=== PATIENT | male | born 1955 | race Caucasian/White ===

== ENCOUNTER 2018-06-18 13:51 | Inpatient (IN) ==
[~2018-06-18 13:51] MED LIST: ceFAZolin 1,000 MG, Sodium Chloride IRRigation 1,000 ML IR ONE
[2018-06-18] MEDS ORDERED: Famotidine 20 MG/2 ML VIAL IVP ONE (14:22)
[2018-06-18] MEDS ORDERED: Gabapentin 300 MG CAPSULE PO ONE (14:22)
[2018-06-18] MEDS ORDERED: Acetaminophen IV 1,000 MG/100 ML INFUS..BTL IVPB ONE (14:23)
[2018-06-18] MEDS ORDERED: traMADol 50 MG TABLET PO ONE (14:23)
[2018-06-18] MEDS ORDERED: Albuterol 2.5 MG/3 ML NEBULIZER IH ONE (14:25)
[2018-06-18] MEDS ORDERED: CeFAZolin Syr 2,000MG/20 ML 2,000 MG/20 ML SYRINGE IVPB ONE (14:25)
[2018-06-18] MEDS ORDERED: Ringers Solution, Lactated 1,000 ML IVC SCH (14:30)
--- NOTE | 2018-06-18 15:13 | Anesthesia Evaluation PreOp ---
Date of Encounter: 06/18/18 Time of Encounter: 15:12 - Past History Planned Operation: L-CEA Cardiac History: MO (2002), HTN, Hyperlipidemia, Cardiac Surgery (CABG x 3v at same time as Stent [2002]), Cardiac Stent ( stent x 1 2002), Other (PVDz s/p BLE bypasses w/ stents [[id number]]) Pulmonary History: Smoker (1ppd x 45yrs), COPD (denies) OPERATIONS SUPPORT SPECIALIST History: TIA (TIA x 3 [[id number]] discovered on imaging...off Eliquis x 7 days), Other (Anxiety/Depression) Other Medical History: GERD, Other (Hx Colon resection secondary to ischemic bowel/embolus 2015) Anesthesia History: No Prior Anesthetic Complications, Past Anesthesia (CABG x 3v [2002], Colon resection 2015, FAcial surgery s/p 86 foot fall off bldg 1985, Knee scope, Lumbar surgery/herniated disc), Problems ("I get Mean after Anesthesia") Alcohol Use: none Drug use: none Medications and Allergies Albuterol Sulfate [Albuterol Inhaler] 2 puff IH Q6H PRN 06/14/18 [History] Aspirin [Lo-Dose Aspirin EC] 81 mg PO QAM 06/14/18 [History] Atorvastatin Calcium [Lipitor] 80 mg PO HS 06/14/18 [History] Carvedilol [Coreg] 12.5 mg PO BIDWM 06/14/18 [History] Cholecalciferol (Vitamin D3) [Vitamin D3] 1,000 unit PO BID 06/14/18 [History] FLUoxetine HCl [Prozac] 10 mg PO QAM 06/14/18 [History] Lisinopril [Zestril] 10 mg PO DAILY 06/14/18 [History] Omeprazole [PriLOSEC] 20 mg PO QAM 06/14/18 [History] Trazodone HCl 50 mg PO HS 06/14/18 [History] Apixaban [Eliquis] 5 mg PO BID 06/18/18 [History] Allergy/AdvReac Type Severity Reaction Status Date / Time No Known Allergies Allergy Unverified 06/18/18 14:53 - Meds/Allergy Pre-op Review Medications Reviewed: Yes Allergies Reviewed: Yes Beta Blockers on Current Med List: No Anesthesia Results - Labs Laboratory Tests 06/12/18 06/12/18 11:13 11:13 WBC 7.4 Hgb 14.5 Hct 43.5 Plt Count 190 Sodium 139 Potassium 4.5 Chloride 107 Carbon Dioxide 27 BUN 11 Creatinine 1.15 Est GFR (Non-Af Amer) > 60 Glucose 99 - Imaging EKG: image reviewed (56bpm - SINUS BRADYCARDIA MODERATE INTRAVENTRICULAR CONDUCTION DELAY ST DEVIATION AND MODERATE T-WAVE ABNORMALITY, CONSIDER ANTEROLATERAL ISCHEMIA Electronically Signed On 06-12-2018 15:31:32 EDT by Chapin Pillai) Additional studies: ECHO 02/2018 EV/EV echocardiogram Impressions: LVEF 35-40%. Moderate global and segmental left ventricular systolic dysfunction. Mildly dilated left ventricle. Mild left ventricular diastolic dysfunction. Normal right ventricular structure and function. Mild-moderate mitral regurgitation. Unable to estimate RVSP due to lack of TR jet. Left Ventricular Wall Motion: Rest Echo Findings The apical inferior, mid inferior, basal inferior, mid anterior, basal anterior, basal inferior septal, apical lateral, mid anterior lateral, basal anterior lateral, mid inferior lateral, basal anterior septal and basal inferior lateral plasencia were hypokinetic. The apex, apical anterior, apical septal, mid inferior septal and mid anterior septal plasencia were akinetic. Anesthesia Exam O2 Sat Height 1.7 m Height 1.7 m Weight 72.121 kg Weight 72.121 kg O2 Sat by Pulse Oximetry 99 O2 Sat by Pulse Oximetry 99 Vital Signs Temp Pulse Resp BP Pulse Ox 97.6 F 67 18 135/86 99 06/18/18 14:29 06/18/18 14:29 06/18/18 14:29 06/18/18 14:29 06/18/18 14:29 Height: 5'7" Weight: 159# BMI = 25 NPO (# of Hours): MNoc - HEENT Pupil (Motor): Pupils equal, EOMI Mallampati: II Teeth: Edentulous Oral Opening: Greater than 3 - OPERATIONS SUPPORT SPECIALIST LOC: Oriented OPERATIONS SUPPORT SPECIALIST Motor: Normal RUE, Normal LUE, Normal RLE, Normal LLE, Normal Face OPERATIONS SUPPORT SPECIALIST Sensory: Normal: RUE, LUE, RLE, LLE, Face - Cardiac Rhythm: Regular Murmur: None - Pulmonary Breath Sounds: bilateral Clear Respiratory Effort: Symmetrical Anesthesia Assess/Plan ASA Score: 3 (HTN, GERD, Anxiety/Depression, COPD, Chol,) Level of consciousness: Cooperative, Oriented, Tranquil Anesthetic Plan: General Monitoring Plan: Standard Monitors, A-Line Recovery Plan: PACU Anes Supervising Prov Stmt: PT seen/evaluated, R&B discussed, questions answered and consent obtained - Hernán.
--- NOTE | 2018-06-18 15:26 | History & Physical Report ---
Date of Encounter: 06/18/18 Time of Encounter: 15:25 24 Hour HP Update - Instructions Instructions: If the History and Physical is less than 30 days old and was completed prior to A.M. admission and or procedure and has NOT been updated on calendar day of procedure please complete this update prior to performing procedure. - Update Patient reports changes in Medical Condition: No Changes in examination, assessment, or condition: No Changes in Medication: No Preop tests/diagnostics Reviewed: Yes Surgery Remains Indicated: Yes Consent for Planned Operative Procedure(s) Verified: Yes - Pre-Operative Checklist Preoperative Checklist Indicated: Yes Prophylactic Antibiotic Ordered: Yes Home Medications Include Beta Areli: Yes Beta Areli Taken Today (Day of Surgery): Yes Beta Areli Taken Yesterday (Day Prior to Surgery): Yes Is VTE Prophylaxis Indicated?: Yes
[2018-06-18] MEDS ORDERED: Heparin 1,000 UNITS/500 mL 500 ML ONE (15:33)
[2018-06-18] MEDS ORDERED: Dexamethasone 4 MG/ML VIAL ONE (16:17)
[2018-06-18] MEDS ORDERED: Ondansetron 4 MG/2 ML VIAL ONE (16:17)
[2018-06-18] MEDS ORDERED: *HR* FentaNYL (PF) 100 MCG/2 ML VIAL ONE ×2 (16:17→20:01)
[2018-06-18] MEDS ORDERED: Lidocaine -MPF 2% 2 ML VIAL ONE (16:17)
[2018-06-18] MEDS ORDERED: *HR* Succinylcholine 200 MG/10 ML VIAL IVP ONE (16:17)
[2018-06-18] MEDS ORDERED: *HR* Remifentanil 2 MG VIAL IVP ONE (16:17)
[2018-06-18] MEDS ORDERED: Lidocaine -MPF 4% 5 ML AMPUL ONE (16:17)
[2018-06-18] MEDS ORDERED: *HR* PHENYLEPHRINE 1,000 MCG/10 ML SYRINGE IVP ONE (16:17)
[2018-06-18] MEDS ORDERED: *HR* Midazolam HCl 2 MG/2 ML VIAL ONE (16:17)
[2018-06-18] MEDS ORDERED: *HR* Propofol 200 MG/20 ML VIAL IVP ONE (16:17)
[2018-06-18] MEDS ORDERED: *HR* Rocuronium Bromide 50 MG/5 ML VIAL ONE (16:17)
[2018-06-18] MEDS ORDERED: Heparin 1,000 UNITS/500 mL 1,000 ML ONE (16:25)
[2018-06-18] MEDS ORDERED: Bupivacaine-MPF 0.25% 10 ML VIAL ONE (16:25)
[2018-06-18] MEDS ORDERED: Lidocaine 1% 20 ML MDV ONE (16:25)
[2018-06-18] MEDS ORDERED: *HR* Vasopressin 20 UNIT/ML VIAL ONE (17:24)
[2018-06-18] MEDS ORDERED: *HR* Phenylephrine 10 MG/ML VIAL ONE (18:04)
[2018-06-18] MEDS ORDERED: *HR* Heparin 5,000 UNIT/ML VIAL ONE ×2 (18:10→19:13)
--- NOTE | 2018-06-18 20:06 | Operative Note ---
Date of procedure: 06/18/18 Pre-op diagnosis: left carotid stenosis and CVA Post-op diagnosis: same Procedure: left carotid endarterectomy with 8 Fr shunt and patch angioplasty Complications: 0 Anesthesia: GETA Surgeon: Gregory Cox Was there an retail administrative assistant present: No Estimated blood loss (cc): 150 Specimen: 0 Condition: stable Disposition: PACU Procedure in Detail: History Geoffrey Worthy is a 62-year-old white male who was seen in the clinic for a bnormal duplex scan and history of bilateral hemispheric strokes. The patient is being evaluated for future left knee surgery and he comes to the vascular surgery clinic for clearance. Because of the severity of his disease and angina and was recommended. This was performed last Sunday and revealed a high-grade stenosis of the left internal carotid artery and bulbar area. The patient THE OPERATING ROOM FOR CORRECTION OF THIS LESION. PROCEDURE AFTER INFORMED CONSENT WAS OBTAINED THE PATIENT WAS TAKEN TO THE OPERATING ROOM. GENERAL ENDOTRACHEAL ANESTHESIA WAS ESTABLISHED. AN ARTERIAL LINE WAS PLACED. THE LEFT NECK WAS THEN STERILELY PREPPED AND DRAPED. AFTER A TIMEOUT PROTOCOL WAS OBSERVED AND INCISION WAS MADE ON THE LEFT NECK PARALLEL TO THE ANTERIOR BORDER OF THE STERNOCLEIDOMASTOID MUSCLE. DISSECTION WAS CARRIED DOWN TO THE CAROTID SHEATH WHICH WAS THEN OPENED. THE PATIENT HAD SIGNIFICANT SCARRING ALONG THE CONTENTS OF THE CAROTID SHEATH SUGGESTING PREVIOUS INSTRUMENTATION IN THIS AREA. AFTER THE DISSECTION WAS COMPLETE AND SELECTIVE CONTROL WAS OBTAINED OF THE CAROTID VESSELS 5000 UNITS OF HEPARIN WERE ADMINISTERED INTRAVENOUSLY. AFTER 3 MINUTE DELAY THE VESSELS WERE CLAMPED. THE INTERNAL CAROTID ARTERY WAS CLAMPED FIRST. USING AN 11 BLADE KNIFE AND ANGULO SCISSORS THE ARTERY WAS OPENED. AN [address] HELENIAN WAS THEN INSERTED ATRAUMATICALLY. PATENCY OF THE SHUNT WAS CONFIRMED BY THE USE OF INTRAOPERATIVE DOPPLER. EVALUATION OF THE PLAQUE REVEALED A VERY DENSE AND THICK PLAQUE THAT WAS RELATIVELY HOMOGENEOUS. THERE IS NO FINDING OF INTRAMURAL OR INTRALUMINAL THROMBUS. The endarterectomy was then begun at the distal aspect of the common carotid artery. A dissection plane was established and was then carried proximally and distally. The endpoint on the internal carotid artery was smooth and no tacking sutures were necessary. The bed of the vessel wasn't inspected carefully for any residual debris. After all was removed. Was copiously flushed with heparin iced saline. A bovine pericardial patch angioplasty was then performed. This was sewn into position using 2 6-0 Prolene sutures. Leaving a small space open on the suture line the 8 [place]ian shunt was then clamped divided and removed. The final few sutures were placed. The internal carotid was allowed to back flushed and was reclamped. Then the external and common carotid were opened and finally the internal was reopened. There is no hemodynamic distress with this maneuver. Excellent pulsations and Doppler signals were observed throughout the carotid system. Hemostasis was achieved. A superficial cervical block using half percent Marcaine was performed. The wound was irrigated with antibiotic-containing solution. The wound was then closed in layers using absorbable suture. No drains were placed. A dry sterile dressing was applied. The patient was then reversed from anesthesia and extubated in the operating room. He was found to be neurologically intact. The patient was then transported from the operating room to the recovery room in stable condition.
[2018-06-18] MEDS ORDERED: *HR* Labetalol 20 MG/4 ML SYRINGE IVP ONE (20:28)
[2018-06-18] MEDS ORDERED: *HR* Labetalol 20 MG/4 ML SYRINGE IVP PRN (21:36)
[2018-06-18] MEDS ORDERED: Naloxone 0.4 MG/ML INJ IVP PRN (21:36)
[2018-06-18] MEDS ORDERED: Acetaminophen 325 MG TABLET PO PRN (21:36)
[2018-06-18] MEDS ORDERED: Ondansetron 4 MG/2 ML VIAL IVP PRN (21:36)
[2018-06-18] MEDS ORDERED: traZODone 50 MG TABLET PO SCH (21:36)
[2018-06-18] MEDS ORDERED: *HR* HYDROcodone/Acet 5/325 mg TABLET PO PRN (21:36)
[2018-06-18] MEDS: Cholecalciferol (D-3) 1,000 UNIT TABLET PO SCH (23:00)
[2018-06-19 03:25] LABS: Basophils % 0.1 %; Hematocrit 41.6 % (37.5-50.1); Hemoglobin 13.9 g/dL (12.9-16.9); Immature Granulocytes % 0.3 % (0-4); Lymphocytes # 1.4 K/mcL (0.6-4.6); Lymphocytes % 14.7 %; Mean Corpuscular HGB Conc 33.4 g/dL (31.6-35.5); Mean Corpuscular Hemoglobin 29.8 pg (28.0-33.3); Mean Corpuscular Volume 89.1 fL (83.0-100.0); Mean Platelet Volume 9.6 fL (9.4-12.4); Monocytes # 0.2 K/mcL (0.0-1.3); Monocytes % 1.6 %; Neutrophils # 7.8 K/mcL (1.6-8.9); Platelet Count 190 K/mcL (140-400); Red Blood Count 4.67 M/mcL (4.19-5.50); Red Cell Distribution Width 14.4 % (11.5-14.5); Segmented Neutrophils % 83.3 %
[2018-06-19 03:44] LABS: BUN/Creatinine Ratio 13 (6-26); Blood Urea Nitrogen 16 mg/dL (8-23); Calcium 8.9 mg/dL (8.6-10.3); Carbon Dioxide 22 mEq/L (23-29); Chloride 105 mEq/L (98-107); Glucose 153 mg/dL (70-105); Osmolality,Calculated 284 (280-300); Potassium 4.4 mEq/L (3.5-5.1); Sodium 135 mEq/L (136-145); eGFR For Non-African Americans 58 (> 60)
[2018-06-19] MEDS: Cholecalciferol (D-3) 1,000 UNIT TABLET PO SCH (07:52)
[2018-06-19] MEDS ORDERED: FLUoxetine HCl 10 MG CAPSULE PO SCH (09:00)
[2018-06-19] MEDS ORDERED: Aspirin Enteric Coated 81 MG Tablet PO SCH (09:00)
[2018-06-19] MEDS ORDERED: Lisinopril 20 MG TABLET PO SCH (09:00)
--- NOTE | 2018-06-19 11:21 | Discharge Summary ---
Orders not resulted at time of discharge: Pending orders 06/14/18 17:27 Red Blood Cells [BBK] Routine Date of Encounter: 06/19/18 Time of Encounter: 12:13 - Discharge Diagnosis (1) Left carotid stenosis Priority: Primary Status: Acute Comments: Patient was found to have abnormal duplex scan which led to a angiogram. Patient had high-grade left internal carotid artery stenosis. Patient underwent left carotid endarterectomy. (2) Stroke Priority: Secondary Status: Chronic Comments: History of bihemispheric strokes. Qualifiers: CVA mechanism: embolism Precerebral and cerebral artery: unspecified cerebral artery Qualified Code(s): I63.40 - Cerebral infarction due to embolism of unspecified cerebral artery (3) Systolic CHF Priority: Secondary Status: Chronic Comments: Patient has chronic congestive heart failure. Patient is under medical control. Qualifiers: Heart failure chronicity: chronic Qualified Code(s): I50.22 - Chronic systolic (congestive) heart failure - Hospital Course Hospital course: Mr. Worthy is a 62 year old male With past history of bihemispheric strokes. Abnormal duplex scan and abnormal carotid artery angiogram. Patient underwent a left carotid endarterectomy. Patient did well postoperatively. He had no neurologic problems. He was felt fit for discharge on the afternoon of postoperative day #1. Information regards to his diet and medications and activities were reviewed with the patient prior to discharge. - Time Spent with Patient Total time spent providing and/or coordinating discharge services: - Discharge Medications Prescriptions: No Action Cholecalciferol (Vitamin D3) [Vitamin D3] 1,000 unit PO BID Trazodone HCl 50 mg PO HS FLUoxetine HCl [Prozac] 10 mg PO QAM Omeprazole [PriLOSEC] 20 mg PO QAM Lisinopril [Zestril] 10 mg PO DAILY Carvedilol [Coreg] 12.5 mg PO BIDWM Atorvastatin Calcium [Lipitor] 80 mg PO HS Albuterol Sulfate [Albuterol Inhaler] 2 puff IH Q6H PRN PRN Reason: Shortness Of Breath Aspirin [Lo-Dose Aspirin EC] 81 mg PO QAM Apixaban [Eliquis] 5 mg PO BID Home Medications: Albuterol Sulfate [Albuterol Inhaler] 2 puff IH Q6H PRN 06/14/18 [History] Aspirin [Lo-Dose Aspirin EC] 81 mg PO QAM 06/14/18 [History] Atorvastatin Calcium [Lipitor] 80 mg PO HS 06/14/18 [History] Carvedilol [Coreg] 12.5 mg PO BIDWM 06/14/18 [History] Cholecalciferol (Vitamin D3) [Vitamin D3] 1,000 unit PO BID 06/14/18 [History] FLUoxetine HCl [Prozac] 10 mg PO QAM 06/14/18 [History] Lisinopril [Zestril] 10 mg PO DAILY 06/14/18 [History] Omeprazole [PriLOSEC] 20 mg PO QAM 06/14/18 [History] Trazodone HCl 50 mg PO HS 06/14/18 [History] Apixaban [Eliquis] 5 mg PO BID 06/18/18 [History] Allergies/Adverse Reactions: Allergy/AdvReac Type Severity Reaction Status Date / Time No Known Allergies Allergy Unverified 06/18/18 14:53 Date of admission: 06/18/18 21:31 [facility] care physician: [facility] Consults: None Procedure(s) Performed: Left carotid endarterectomy with patch angioplasty Discharging clinician: Gregory Cox Anticipated date of discharge: 06/19/18 Exam General: Present: Conversant, No Apparent Distress, Well developed, Well nourished HEENT: Present: Atraumatic, Normocephaly, Trachea midline Neck: Absent: JVD, Midline deformity, Tracheal deviation Neuro: Present: Alert and responsive, No focal deficits noted, Cranial nerves grossly intact, Motor nerves grossly intact, Sensory nerves grossly intact Vascular: Present: Surgical incisions (Left neck incision is clean and dry) Skin: Present: No rashes noted on visualized skin - Patient Status Disposition: Home, Self-Care Condition: Good Functional capacity at discharge: independent ambulation Overall status at discharge: patient is progressing back to baseline - Discharge Instructions Follow Up With: [facility] [Primary Care Provider[facility] - 06/24/18 10:45 am (Please fax discharge summary and operative report to [phone]) Gregory Cox MD [Partnered Physician] - 07/03/18 9:30 am Additional Instructions: Keep left neck incision dry for total of 5 days following surgery. No automobile driving. No manual labor. No lifting greater than 10 pounds. Use ice pack on left neck for 2 days following surgery. Using incentive spirometer at home 10 times an hour while awake for the next 2 weeks then discard incentive spirometer. Resume Apixaban on morning at normal dose. Resume usual home medications. - Diet and Activity Activity: increase activity as tolerated Diet: low fat, low cholesterol
[2018-06-19 11:52] VITALS: BP 134/87
== END 2018-06-19 15:57 | disposition home or self-care (01) | DRG 38 ==
LOC: SAMDAY 13:51 → 2NNU 21:31
PROVIDERS: ADMIT Surgery Vascular Surgery; ATTEND Surgery Vascular Surgery

== ENCOUNTER 2020-01-10 15:38 | Observation (INO) ==
[2020-01-10] MEDS ORDERED: levoFLOXacin 750 MG TABLET PO ONE (16:17)
[2020-01-10] MEDS ORDERED: methylPREDNISolone 125 MG/2 ML VIAL IVP ONE (16:17)
[2020-01-10] MEDS ORDERED: Ipratropium/Albuterol Neb 3 ML IH ONE (16:17)
[2020-01-10] MEDS ORDERED: Azithromycin 250 MG TABLET PO ONE (16:17)
[2020-01-10 17:07] LABS: Immature Granulocytes % 0.4 % (0-4)
[2020-01-10 17:08] LABS: Basophils % 0.4 %; Eosinophils # 0.1 K/mcL (0.0-0.6); Eosinophils % 1.5 %; Hematocrit 32.7 % (37.5-50.1); Hemoglobin 9.4 g/dL (12.9-16.9); Lymphocytes # 3.1 K/mcL (0.6-4.6); Lymphocytes % 33.7 %; Mean Corpuscular HGB Conc 28.7 g/dL (31.6-35.5); Mean Corpuscular Hemoglobin 21.5 pg (28.0-33.3); Mean Corpuscular Volume 74.8 fL (83.0-100.0); Mean Platelet Volume 10.8 fL (9.4-12.4); Monocytes # 0.7 K/mcL (0.0-1.3); Monocytes % 7.7 %; Neutrophils # 5.1 K/mcL (1.6-8.9); Platelet Count 211 K/mcL (140-400); Red Blood Count 4.37 M/mcL (4.19-5.50); Segmented Neutrophils % 56.3 %; White Blood Count 9.1 K/mcL (4.3-11.1)
[2020-01-10 17:21] LABS: Alanine Aminotransferase 19 Units/L (7-52); Albumin 3.4 g/dL (3.5-5.7); Albumin/Globulin Ratio 1.1 (1.1-2.2); Alkaline Phosphatase 94 Units/L (34-104); Aspartate Amino Transferase 16 Units/L (13-39); BUN/Creatinine Ratio 13 (6-26); Bilirubin,Direct 0.1 mg/dL (0.0-0.2); Bilirubin,Indirect 0.4 mg/dL (0.0-1.0); Bilirubin,Total 0.5 mg/dL (0.3-1.0); Blood Urea Nitrogen 13 mg/dL (8-23); Calcium 8.5 mg/dL (8.6-10.3); Carbon Dioxide 24 mEq/L (23-29); Chloride 105 mEq/L (98-107); Glucose 81 mg/dL (70-105); Osmolality,Calculated 283 (280-300); Potassium 3.8 mEq/L (3.5-5.1); Sodium 137 mEq/L (136-145); Total Protein 6.4 g/dL (6.4-8.9); eGFR For African Americans > 60 (> 60); eGFR For Non-African Americans > 60 (> 60)
[2020-01-10 17:29] LABS: Troponin I 0.04 ng/mL (< 0.04)
[2020-01-10] MEDS ORDERED: Aspirin 81 MG TAB.CHEW PO STA (17:29)
[2020-01-10 17:33] LABS: Hypochromasia Present (Not Present); Large Platelets Present (Not Present)
[2020-01-10 17:34] LABS: Acanthocytes 1+ (Not Present); Anisocytosis 1+ (Not Present)
[2020-01-10] MEDS ORDERED: cefTRIAXone 1,000 MG in Water for inj. (sterile) 10 ML IVP ONE (18:40)
[2020-01-10] MEDS ORDERED: Azithromycin 500 MG in 0.9 % Sodium Chloride 250 ML IVPB ONE (18:40)
[2020-01-10] MEDS ORDERED: Furosemide 40 MG in 0.9 % Sodium Chloride 50 ML IVPB ONE (20:15)
[2020-01-10] MEDS ORDERED: Naloxone 0.4 MG/ML INJ IVP PRN (20:19)
[2020-01-10] MEDS ORDERED: Ondansetron 4 MG/2 ML VIAL IVP PRN (20:19)
[2020-01-10] MEDS ORDERED: Furosemide 40 MG/4 ML VIAL IVP ONE (20:30)
[2020-01-10 20:40] LABS: % Iron Saturation 5 % (20-55); Iron 21 mcg/dL (65-175); Transferrin 278 mg/dL (203-362)
[2020-01-10 22:40] LABS: Hematocrit 34.9 % (37.5-50.1); Hemoglobin 9.7 g/dL (12.9-16.9)
[2020-01-10] MEDS ORDERED: Pantoprazole 40 MG VIAL IVP SCH (23:08)
[2020-01-11] MEDS: Ipratropium/Albuterol Neb 3 ML IH SCH ×3 (00:06→08:01)
[2020-01-11 01:35] LABS: Basophils % 0.1 %; Immature Granulocytes % 0.4 % (0-4)
[2020-01-11 01:36] LABS: Eosinophils % 0.1 %; Hematocrit 32.3 % (37.5-50.1); Hemoglobin 9.2 g/dL (12.9-16.9); Lymphocytes # 0.7 K/mcL (0.6-4.6); Lymphocytes % 8.3 %; Mean Corpuscular HGB Conc 28.5 g/dL (31.6-35.5); Mean Corpuscular Hemoglobin 21.5 pg (28.0-33.3); Mean Corpuscular Volume 75.5 fL (83.0-100.0); Monocytes % 0.4 %; Neutrophils # 8.1 K/mcL (1.6-8.9); Platelet Count 213 K/mcL (140-400); Red Blood Count 4.28 M/mcL (4.19-5.50); Red Cell Distribution Width 18.3 % (11.5-14.5); Segmented Neutrophils % 90.7 %; White Blood Count 8.9 K/mcL (4.3-11.1)
[2020-01-11 01:54] LABS: BUN/Creatinine Ratio 15 (6-26); Blood Urea Nitrogen 18 mg/dL (8-23); Calcium 8.5 mg/dL (8.6-10.3); Carbon Dioxide 25 mEq/L (23-29); Chloride 103 mEq/L (98-107); Glucose 288 mg/dL (70-105); Magnesium 1.6 mg/dL (1.6-2.6); Osmolality,Calculated 298 (280-300); Sodium 138 mEq/L (136-145); eGFR For African Americans > 60 (> 60); eGFR For Non-African Americans > 60 (> 60)
[2020-01-11 02:14] LABS: Anisocytosis 1+ (Not Present); Hypochromasia Present (Not Present); Platelet Estimate Normal (Normal)
[2020-01-11] MEDS ORDERED: MethylPREDNISolone 40 MG/ML VIAL IVP SCH (06:00)
[2020-01-11] MEDS ORDERED: carvediloL 6.25 MG TABLET PO SCH (08:00)
[2020-01-11 08:38] VITALS: BP 160/84
[2020-01-11] MEDS ORDERED: lisinopriL 20 MG TABLET PO SCH (09:00)
[2020-01-11] MEDS ORDERED: Cyanocobalamin (B-12) 1,000 MCG TABLET PO SCH (09:00)
[2020-01-11] MEDS ORDERED: FLUoxetine HCl 10 MG CAPSULE PO SCH (09:00)
[2020-01-11] MEDS ORDERED: Iron Sucrose Complex 200 MG in 0.9 % Sodium Chloride 100 ML IVPB SCH (09:00)
[2020-01-11] MEDS ORDERED: Azithromycin 250 MG TABLET PO SCH (09:00)
== END 2020-01-11 11:30 | disposition home or self-care (01) ==
LOC: 3BNU 15:38 → EMEROOARM 15:38 → SUATTDRO 20:56 → 3BNU 21:21
PROVIDERS: ADMIT Student in an Organized Health Care Education/Training Program; ATTEND Internal Medicine

== ENCOUNTER 2020-06-23 06:18 | Observation (INO) ==
[2020-06-23] MEDS ORDERED: 0.9 % Sodium Chloride 1,000 ML ONE ×5 (06:51→20:05)
[2020-06-23] MEDS ORDERED: Heparin 1,000 UNITS/500 mL 500 ML ONE ×2 (07:17→10:16)
[2020-06-23] MEDS ORDERED: *HR* Heparin 10,000 UNIT/10 ML VIAL ONE ×2 (07:17→10:16)
[2020-06-23] MEDS ORDERED: Nitroglycerin 1,000 MCG/5 ML VIAL IV ONE ×3 (07:17→10:16)
[2020-06-23] MEDS ORDERED: ISOVUE-370 200 ML INFUS..BTL ONE ×4 (07:17→10:59)
[2020-06-23] MEDS ORDERED: *HR* Midazolam HCl 2 MG/2 ML VIAL ONE ×2 (08:02→10:34)
[2020-06-23] MEDS ORDERED: *HR* FentaNYL (PF) 100 MCG/2 ML VIAL ONE ×3 (08:02→10:34)
[2020-06-23] MEDS ORDERED: Tirofiban 12.5 MG/250ML 12.5 MG/250 ML BAG ONE (08:43)
[2020-06-23] MEDS ORDERED: HEPARIN 25000 UNIT/250 ML ONE (09:50)
[2020-06-23] MEDS ORDERED: D5W ONE (09:50)
[2020-06-23] MEDS ORDERED: *HR* Heparin 5,000 UNIT/ML VIAL IVP PRN ×2 (09:52)
[2020-06-23] MEDS ORDERED: *HR* FentaNYL (PF) 100 MCG/2 ML VIAL IVP ONE (10:00)
[2020-06-23] MEDS ORDERED: Heparin 25,000UNIT/250ML 1/2NS 25,000 UNIT/250 ML IV.SOLN IVC SCH (10:00)
[2020-06-23] MEDS: Apixaban 5 MG TABLET PO SCH ×2 (14:37→23:49)
[2020-06-23 14:49] LABS: Heparin anti-factor XA UFH 0.94 IU/mL (0.30-0.70)
[2020-06-23 14:50] LABS: INR 1.3; Prothrombin Time 14.4 Seconds (9.4-12.1)
[2020-06-23] MEDS ORDERED: *HR* Atropine Sulfate 1 MG/10 ML SYRINGE ONE (20:05)
[2020-06-24 06:41] VITALS: BP 102/69
[2020-06-24] MEDS: Apixaban 5 MG TABLET PO SCH (08:07)
[2020-06-24] MEDS ORDERED: Ipratropium/Albuterol Neb 3 ML IH PRN (08:09)
[2020-06-24] MEDS ORDERED: FLUoxetine 20 MG CAPSULE PO SCH (09:00)
[2020-06-24] MEDS ORDERED: Aspirin Enteric Coated 81 MG Tablet PO SCH (09:00)
[2020-06-24] MEDS ORDERED: carvediloL 6.25 MG TABLET PO SCH (09:00)
[2020-06-24] MEDS ORDERED: Cyanocobalamin (B-12) 1,000 MCG TABLET PO SCH (09:00)
[2020-06-24] MEDS ORDERED: Cholecalciferol (D-3) 1,000 UNIT (25MCG) TABLET PO SCH (09:00)
[2020-06-24] MEDS ORDERED: BuPROPion SR (12 HR) 150 MG TABLET PO SCH (09:00)
[2020-06-24 09:50] LABS: BUN/Creatinine Ratio 12 (6-26); Blood Urea Nitrogen 14 mg/dL (8-23); Calcium 9.3 mg/dL (8.6-10.3); Carbon Dioxide 24 mEq/L (23-29); Chloride 105 mEq/L (98-107); Glucose 147 mg/dL (70-105); Osmolality,Calculated 285 (280-300); Potassium 4.2 mEq/L (3.5-5.1); Sodium 136 mEq/L (136-145); eGFR For African Americans > 60 (> 60); eGFR For Non-African Americans > 60 (> 60)
[2020-06-24 09:52] LABS: Basophils # 0.1 K/mcL (0.0-0.2); Basophils % 0.8 %; Eosinophils # 0.1 K/mcL (0.0-0.6); Eosinophils % 1.2 %; Immature Granulocytes % 0.1 % (0-4); Lymphocytes # 3.2 K/mcL (0.6-4.6); Lymphocytes % 34.8 %; Mean Corpuscular Hemoglobin 29.3 pg (28.0-33.3); Mean Corpuscular Volume 91.5 fL (83.0-100.0); Mean Platelet Volume 9.5 fL (9.4-12.4); Monocytes # 0.8 K/mcL (0.0-1.3); Monocytes % 9.1 %; Neutrophils # 4.9 K/mcL (1.6-8.9); Platelet Count 204 K/mcL (140-400); Red Blood Count 4.81 M/mcL (4.19-5.50); Red Cell Distribution Width 12.9 % (11.5-14.5); White Blood Count 9.1 K/mcL (4.3-11.1)
[2020-06-24 09:55] LABS: Hemoglobin 14.1 g/dL (12.9-16.9)
[2020-06-24] MEDS ORDERED: Tiotropium 10 INH DOSE IH SCH (10:00)
== END 2020-06-24 11:40 | disposition home or self-care (01) ==
LOC: 2NNU 06:18 → INVDIALAB 06:18 → 2ANU 06-24 05:39
PROVIDERS: ADMIT Internal Medicine Cardiovascular Disease; ATTEND Internal Medicine Cardiovascular Disease